=== PATIENT | female | born 1980 | race Caucasian/White ===

== ENCOUNTER → 2018-07-15 | Outpatient (CLI) | payer OTHER ==
--- NOTE | ~2018-07-15 | EKG ---
[place], [place] ELECTROCARDIOGRAM REPORT NAME: JANICE FRIEND UNIT #: [id number] ROOM: DOCTOR: EPIPHANY DRAFT REPORT BIRTHDATE: [birth year] [facility] Test Date: 2018-07-15 Test Time: 15:43:16 Pat Name: JANICE FRIEND Department: Room: Gender: F Field Technical Specialist: Elsie Dominguez : 1980 Requested By: LATOSHA CHAUHAN Order Number: [id number] Reading MD: Eliud Berger MD Measurements Intervals [place] Rate: 60 P: 36 RI: 131 QRS: 71 QRSD: 86 T: 65 QT: 430 QTc: 430 Interpretive Statements Sinus rhythm Left ventricular hypertrophy No previous ECG available for comparison Electronically Signed On 07-16-2018 6:27:37 PST by Eliud Berger MD CM:EKGRPT:ELECTROCARDIOGRAM REPORT [id number] LATOSHA CHAUHAN MD EPIPHANY DRAFT REPORT LATOSHA CHAUHAN MD
== END | disposition home or self-care (01) ==
LOC: RESCLI 15:08
DX: I51.7 Cardiomegaly (principal); F41.0 Panic disorder [episodic paroxysmal anxiety]; F41.9 Anxiety disorder, unspecified; R07.89 Other chest pain; E55.9 Vitamin D deficiency, unspecified; Z88.8 Allergy status to other drugs, medicaments and biological substances; R79.89 Other specified abnormal findings of blood chemistry

== ENCOUNTER → 2018-08-15 | Outpatient (CLI) | payer OTHER | END | disposition home or self-care (01) | LOC: CARD 07-30 14:00 | DX: I51.7 Cardiomegaly (principal) ==

== ENCOUNTER → 2023-04-24 | Outpatient (CLI) | payer OTHER ==
[2023-04-24 11:26] LABS: BASO % 0.4 % (0.0-1.0); EOS # 0.2 10*3/uL (0.0-0.4); EOS % 1.7 % (1.0-4.0); HEMATOCRIT 42.4 % (37.0-47.0); LYMPH # 3.1 10*3/uL (1.3-4.4); LYMPH % 29.5 % (27.0-41.0); MEAN CELL VOLUME 92.4 fl (81.0-99.0); MEAN CORPUSCULAR HGB 31.4 pg (27.0-31.0); MEAN PLATELET VOLUME 9.2 fl (9.6-12.3); MONO # 0.7 10*3/uL (0.1-1.0); MONO % 6.2 % (3.0-9.0); NEUT # 6.5 10*3/uL (2.3-7.9); NEUT % 61.8 % (47.0-73.0); PLATELET COUNT AUTOMATED 271 10*3/uL (130-400); RED BLOOD COUNT 4.59 10*6/uL (4.10-5.10); RED CELL DISTRI WIDTH 12.9 % (0-14.5); WHITE BLOOD COUNT 10.5 10*3/uL (4.8-10.8)
[2023-04-24 12:08] LABS: VITAMIN D, 25-HYDROXY 15.6 ng/mL (30-100)
[2023-04-24 12:09] LABS: ALKALINE PHOSPHATASE 64 U/L (46-116); BUN 12 mg/dl (9-23); CHLORIDE 108 mmol/L (98-107); CHOLESTEROL 208 mg/dL (<200); LDL CHOLESTEROL 113 mg/dL (9-159); POTASSIUM 4.6 mmol/L (3.4-5.1); SGPT/ALT 32 U/L (5-49); TOTAL PROTEIN 6.9 gm/dL (6.0-8.0); TRIGLYCERIDES 93 mg/dl (<150)
== END | disposition home or self-care (01) ==
LOC: LAB 11:00
PROVIDERS: ATTEND Physician Assistant
DX: Z51.81 Encounter for therapeutic drug level monitoring (principal); Z79.899 Other long term (current) drug therapy

== ENCOUNTER → 2023-12-06 | Outpatient (CLI) | payer OTHER | END | disposition home or self-care (01) | LOC: MAMMO 01:53 | PROVIDERS: ATTEND Nurse Practitioner Primary Care | DX: Z12.31 Encounter for screening mammogram for malignant neoplasm of breast (principal); Z80.3 Family history of malignant neoplasm of breast ==

== ENCOUNTER 2024-07-06 17:02 | Emergency (ER) | payer OTHER ==
[~2024-07-06] VITALS: Ht 167.6 cm; Wt 86.2 kg
[2024-07-06] MEDS ORDERED: Amoxicillin/Clavulanate Pota 875 MG TAB PO ONE (17:30)
[2024-07-06] MEDS ORDERED: AMOX-CLAV 875-1 EACH PO (17:31)
== END 2024-07-06 17:36 | disposition home or self-care (01) ==
LOC: ED 17:02
DX: K04.7 Periapical abscess without sinus (principal); I10 Essential (primary) hypertension; F32.A Depression, unspecified; F41.9 Anxiety disorder, unspecified; Z88.8 Allergy status to other drugs, medicaments and biological substances